=== PATIENT | female | born 1965 | race Caucasian/White ===

== ENCOUNTER 2017-12-10 19:30 | Emergency (ER) | payer MEDICAID, SELFPAY ==
[2017-12-10 19:31] VITALS: BP 162/77; PULSE 84; RESP 16; TEMP 36.6; O2SAT 97; BMI 36.1
--- NOTE | 2017-12-10 19:56 | ED.VISSUMM ---
- ER Visit Summary Date of Service: 12/10/17 Chief Complaint: Right-sided abdominal pain ?1 week. History of Present Illness: The patient is a 52 F who presents with right-sided abdominal/flank pain for 1 week. Pains severe and waxes and wane in intensity. She also states movement, coughing and lying on her right side causes increased pain. She denies fever, chills night sweats. Does complain of nausea when the pain is severe. She has had no vomiting or diarrhea. She denies dysuria, frequency, urgency or hematuria. She is status post cholecystectomy to be wary of this year. She has no history of renal ureterolithiasis. She denies shortness of breath, pleuritic chest pain or productive cough. She does cough daily secondary smoking. She denies history of PE or DVT. She has no risk factors. She has not noted a rash. She denies any trauma. Physical Examination: Patient appears uncomfortable. Vital signs remarkable and elevated blood pressure 162/77. BMI is 36.2. Head is atraumatic normocephalic. Pupils are equal round reactive. Extraocular muscles are intact. TMs are pearly white with landmarks noted. Nares patent with no drainage. Posterior pharynx without erythema or exudate. Uvula is midline. There is no dysphonia or dysphasia. Trachea is midline. There is no stridor with auscultation of the neck. Heart is regular without murmur, gallop or rub. S1 and S2 are normal. Lungs are clear to auscultation with good movement of air bilaterally. There is significant tenderness right flank and abdomen. There is guarding anteriorly with deep palpation. There is no evidence of inguinal lymphadenopathy or hernia. There is no skin lesions noted to suggest herpes varicella-zoster. There is no bruising to suggest trauma. There is no asymmetry, swelling, discoloration, leg vein distention, palpable cords or tenderness along the distribution of the deep venous system. Test Results: CBC is remarkable for white count of 13.8 with 55 segs no bands 34 lymphs. Basic metabolic panel has an elevated chloride of 110 otherwise unremarkable. Hepatic profile is unremarkable. Urine reveals hematuria with 10-25 RBCs. There is no bacteria or pyuria. CT of the abdomen pelvis without contrast was obtained and interpreted by radiologist as unremarkable. The appendix was visualized and is normal. Emergency Department Course and Treatment: IV was established. Zofran and morphine was ordered. She declined the morphine. She was treated with Toradol IV push and reports marked improvement. She was informed that a CAT scan of the abdomen was obtained without contrast to evaluate for kidney stone since she has microscopic hematuria. Treatment Plan: Pain medication and referral to primary care physician in this area Disposition: Discharged to home Impression: Acute right upper quadrant abdominal pain unknown etiology This note was generated with [employer] dictation software. It may contain incorrect words, spelling, and punctuation that were not noted in review of the chart prior to signing ED Disposition - Plan for ED Patient: Disposition: Home or Assisted Living Chief Complaint: Flank Pain Instructions: ED Abdominal Pain Unkn Cause Prescriptions: Hydrocodone Bitart/Apap 5-325 [[place] 5MG-325MG] 1 tab PO Q6H PRN PRN 3 Days #10 tab PRN Reason: Pain Referrals: Laure Crabtree DO [Primary Care Provider] - Rolando Decker MD [STAFF PHYSICIAN] - 3-5 Days if not improving
[2017-12-10 20:08] LABS: Bacteria 0 SEEN /hpf (None Seen); Mucous, Urine 0 SEEN /hpf (<or=2+)
[2017-12-10] MEDS: Ketorolac 15 MG/ML Vial IV (20:08)
[2017-12-10 20:09] LABS: Color, Urine Yellow (Yellow); Glucose, Dipstick Normal (Normal); Ketone-Dipstick Negative (Negative); Leukocyte Esterase-Dipstick 25 /ul (Negative); Nitrite-Dipstick Negative (Negative); Occult Blood-Urine 150 /ul (Negative); Protein-Dipstick Negative (Negative); Urine Bilirubin Dipstick Negative (Negative); Urine Clarity Clear (Clear); Urine Urobilinogen Normal (Normal)
[2017-12-10 20:12] LABS: Absolute Lymphocyte Count 4.69 X10^3/ul (0.83-4.51); Absolute Neutrophil Count 7.7 X10^3/uL (2.0-7.7); Basophil# 0.05 X10^3/uL; Basophil% 0.4 % (0-1); Eosinophil# 0.21 X10^3/uL; Eosinophils% 1.5 % (0-5); Hematocrit 46.4 % (37-47); Hemoglobin 15.9 g/dl (12.0-15.0); Lymphocyte # 4.69 X10^3/ul (4.0); Lymphocyte % 33.9 % (19-41); Mean Corp Hgb Conc 34.3 g/gl (32-36); Mean Corpuscular Hgb 33.1 pg (27.0-32.0); Mean Corpuscular Volume 96.7 fL (81-99); Mean Platelet Vol. 9.7 fl (6.2-12.0); Monocyte# 1.14 X10^3/uL; Monocyte% 8.2 % (0-10); Neutrophil # 7.72 X10^3/uL (2.7-7.7); Neutrophil % 55.9 % (47-70); POSITIVE COUNT NO; POSITIVE DIFFERENTIAL NO; POSITIVE MORPHOLOGY NO; Platelet Count 181 K/mm3 (150-450); RBC Distribution Width CV 14.1 % (11.6-14.6); RBC Distribution Width SD 49.2 fl (35.1-43.9); White Blood Count 13.8 K/mm3 (4.4-11.0)
[2017-12-10 20:16] LABS: ALB/GLOB Ratio 0.8 RATIO (0.9-2.4); AST(SGOT) 19 U/L (15-37); Alanine Aminotransfer ALT/SGPT 24 U/L (13-56); Albumin, Serum 3.4 g/dL (3.2-5.0); Alkaline Phosphatase 102 U/L (45-117); Anion Gap 7 (5-15); BUN 9 mg/dL (7-18); Chloride 110 mmol/L (98-107); Creatinine, Serum 0.82 mg/dL (0.55-1.02); EST Glomerular Filtration Rate 78 mL/min (>60); Est Glom Filt Rate - Afr Amer 95 mL/min (>60); Estimated Creatinine Clearance 76.84 ml/min; Globulin 4.4 g/dL (2.2-4.2); Glucose 83 mg/dL (74-106); Potassium 3.8 mmol/L (3.5-5.1); Protein, Total 7.8 g/dL (6.4-8.2); Sodium Level 143 mmol/L (136-145)
[2017-12-10 20:20] LABS: Red Blood Cells-Urine 10-25 SEEN /hpf (0-5); Squamous Epithelial Cells - UA 0-5 SEEN /hpf (5-10); White Blood Cells 0-5 SEEN /hpf (0-5)
[2017-12-10 22:14] VITALS: RESP 18; O2SAT 98
[2017-12-10 23:03] VITALS: BP 157/72; PULSE 72; RESP 16; O2SAT 97
== END 2017-12-10 23:04 | disposition home or self-care (01) ==
PROVIDERS: Emergency Provider Emergency Medicine
DX: R10.11 Right upper quadrant pain (principal); R31.29 Other microscopic hematuria; Z90.49 Acquired absence of other specified parts of digestive tract; Z72.0 Tobacco use
CPT/HCPCS: 74176; 80053; 81001; 85025; 96374; 96375; 99283; J7030; A4216; J2405